=== PATIENT | female | born 1975 | race Caucasian/White ===

== ENCOUNTER → 2017-06-04 | Outpatient (CLI) | payer BC ==
--- NOTE | 2017-06-04 10:52 | XR ---
EXAMINATION TYPE: XR foot complete RT DATE OF EXAM: 06/04/2017 COMPARISON: NONE HISTORY: 42 year-old female right foot pain after kicking injury 2 weeks ago. TECHNIQUE: 3 views FINDINGS: Nondisplaced oblique fracture of the fifth proximal phalangeal shaft. No additional acute fracture or dislocation is seen. Tiny plantar calcaneal spur. IMPRESSION: Nondisplaced oblique fracture of the fifth proximal phalangeal shaft.
== END ==
LOC: RADXRYALE 09:44
PROVIDERS: ATTEND Internal Medicine
DX: S92.514A Nondisplaced fracture of proximal phalanx of right lesser toe(s), initial encounter for closed fracture (principal)

== ENCOUNTER 2022-12-15 19:03 | Emergency (ER) | payer BC ==
[2022-12-15 19:25] VITALS: BP 172/99; PULSE 87; RESP 16; TEMP 98.1
--- NOTE | 2022-12-15 20:08 | US ---
EXAMINATION TYPE: US venous doppler duplex LE RT DATE OF EXAM: 12/15/2022 7:53 PM COMPARISON: NONE CLINICAL HISTORY: Right focal thigh pain. History of superficial thrombosis 2021 in Right GSV mid th igh to calf. SIDE PERFORMED: Right TECHNIQUE: The lower extremity deep venous system is examined utilizing real time linear array sonog coral with graded compression, doppler sonography and color-flow sonography. VESSELS IMAGED: Common Femoral Vein Deep Femoral Vein Greater Saphenous Vein * Femoral Vein Popliteal Vein Small Saphenous Vein * Proximal Calf Veins (* superficial vessels) Right Leg: Negative for DVT. Chronic appearance of superficial thrombosis in the right GSV mid thig h to mid calf. IMPRESSION: No evidence of deep vein thrombosis in the right leg. There is evidence for some thrombus in the long saphenous vein which appears chronic.
--- NOTE | 2022-12-15 21:25 | ED ---
General Adult HPI - General Chief complaint: Recheck/Abnormal Lab/Rx Stated complaint: R/O Blood Clot R Leg Time Seen by Provider: 12/15/22 20:42 Source: patient, RN notes reviewed, old records reviewed Mode of arrival: ambulatory - History of Present Illness Initial comments: Patient is a 47-year-old female with past medical history remarkable for superficial thrombosis of her right lower extremity presents emergency Department complaining of some increased pain in the right thigh as well as right inner foreleg. Concern for reoccurrence of blood clot. He was on blood thinners previously but stopped in September. 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 His no chest pain or shortness of breath. Has no abdominal pain, nausea, vomiting. States the pain is isolated to the medial aspect of the right leg. No sensory deficits. Presents for further evaluation at this time. Is concern for possible blood clot. Workup was started in triage. - Related Data Allergies Allergy/AdvReac Type Severity Reaction Status Date / Time morphine AdvReac Itching Verified 12/15/22 19:25 Review of Systems ROS Statement: Those systems with pertinent positive or pertinent negative responses have been documented in the HPI. Review of Systems: CONST: Denies fever EYES: Denies blurry vision ENT: Denies nasal congestion C/V: Denies Chest pain RESP: Denies shortness of breath GI: Denies abdominal pain : Denies dysuria SKIN: Denies rash. MSK: Endorses right leg pain, medial thigh and foreleg NEURO: Denies headache ROS Other: All systems not noted in ROS Statement are negative. Past Medical History Additional Past Medical History / Comment(s): hx of superfical clot in R leg. Past Surgical History: Section Additional Past Surgical History / Comment(s): fissure sx Past Psychological History: No Psychological Hx Reported Smoking Status: Never smoker Past Alcohol Use History: Occasional Past Drug Use History: None Reported General Exam - General Exam Comments Initial Comments: General: Appears in no acute distress. HEAD: Normal with no signs of head trauma. EYES: PERRLA, EOMI, conjunctiva normal, no discharge. ENT: Hearing grossly intact, normal oropharynx. RESPIRATORY: No respiratory distress. C/V: Regular rate and rhythm, no edema, peripheral pulses 2+ and intact throughout ABD: Abd is soft, nontender, nondistended EXT: Normal range of motion, no obvious deformity SKIN: No rashes or lesions observed on exposed skin. NEURO: Alert and oriented 4. Neurovascular intact throughout. Course Vital Signs 12/15/22 19:17 Temperature 98.1 F Pulse Rate 87 Respiratory 16 Rate Blood Pressure 172/99 O2 Sat by Pulse 100 Oximetry Medical Decision Making - Medical Decision Making Was pt. sent in by a medical professional or institution (, [facility], [employer], urgent care, hospital, or jail...) When possible be specific @ -No Did you speak to anyone other than the patient for history (EMS, parent, family, police, friend...)? What history was obtained from this source @ -No Did you review nursing and triage notes (agree or disagree)? Why? @ -I reviewed and agree with nursing and triage notes Were old charts reviewed (outside hosp., previous admission, EMS record, old EKG, old radiological studies, urgent care reports/EKG's, jail records)? Report findings @ -No old charts were reviewed Differential Diagnosis (chest pain, altered mental status, abdominal pain women, abdominal pain men, vaginal bleeding, weakness, fever, dyspnea, syncope, headache, dizziness, GI bleed, back pain, seizure, CVA, palpatations, mental health, musculoskeletal)? @ -Muscle strain DVT, superficial thrombophlebitis, superficial thrombus. This list is not all-inclusive. EKG interpreted by me (3pts min.). @ -None known X-rays interpreted by me (1pt min.). @ -None done CT interpreted by me (1pt min.). @ -None done U/S interpreted by me (1pt. min.). @ -Radiology interpreted and revealed no obvious DVT the patient does have a chronic superficial thrombosis in the superficial system which appears chronic. What testing was considered but not performed or refused? (CT, X-rays, U/S, labs)? Why? @ -None What meds were considered but not given or refused? Why? @ -None Did you discuss the management of the patient with other professionals (professionals i.e. [facility] He, [employer], lab, RT, psych nurse, social work case manager, vest backer, teacher, mortgage loan officer, case supervisor)? Give summary @ -No Was smoking cessation discussed for >3mins.? @ -No Was critical care preformed (if so, how long)? @ -No Were there social determinants of health that impacted care today? How? (Homelessness, low income, unemployed, alcoholism, drug addiction, transportatio n, low edu. Level, literacy, decrease access to med. care, group home, rehab)? @ -No Was there de-escalation of care discussed even if they declined (Discuss DNR or withdrawal of care, Hospice)? DNR status @ -No What co-morbidities impacted this encounter? (DM, HTN, Smoking, COPD, CAD, Cancer, CVA, ARF, Chemo, Hep., AIDS, mental health diagnosis, sleep apnea, morbid obesity)? @ -None Was patient admitted / discharged? Hospital course, mention meds given and route, prescriptions, significant lab abnormalities, going to OR and other pertinent info. @ -Based on the patient's presentation and physical exam, I did discuss the results of her ultrasound as it returned after patient was placed in fast track. She expressed understanding. Patient is a superficial thrombus, but does not appear closed the deep system and therefore I will not start her on blood thinners which she was in agreement with. There is no indication to start the patient on anticoagulation. 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 Strict return precautions were discussed. No concern for PE at this time. She expressed understanding was in agreement this plan. I instructed the patient to follow up with their PCP in the next 1-3 days. I explained that the patient should return to the emergency department if they experience any worsening symptoms. Strict return precautions were discussed with the patient. The patient expressed understanding of these instructions. I answered all questions that the patient had. The patient was discharged home in good condition with their prescriptions and follow up information. Undiagnosed new problem with uncertain prognosis? @ -No Drug Therapy requiring intensive monitoring for toxicity (Heparin, Nitro, Insulin, Cardizem)? @ -No Were any procedures done? @ -No Diagnosis/symptom? @ -Superficial thrombus of the right long saphenous vein, chronic Acute, or Chronic, or Acute on Chronic? @ -Chronic Uncomplicated (without systemic symptoms) or Complicated (systemic symptoms)? @ -Uncomplicated Side effects of treatment? @ -No Exacerbation, Progression, or Severe Exacerbation? @ -No Poses a threat to life or bodily function? How? (Chest pain, [place], MD, pneumonia, PE, COPD, DKA, ARF, appy, cholecystitis, CVA, Diverticulitis, Homicidal, Suicidal, threat to staff... and all critical care pts) @ -No Disposition Clinical Impression: Chronic superficial venous thrombosis of right lower extremity Disposition: HOME SELF-CARE Condition: Good Is patient prescribed a controlled substance at d/c from ED?: No Referrals: Stephen Mi MD [Primary Care Provider] - 1-2 days Time of Disposition: 21:15
== END 2022-12-15 21:44 | disposition home or self-care (01) ==
LOC: EC 19:03
DX: I82.811 Embolism and thrombosis of superficial veins of right lower extremity (principal); Z88.5 Allergy status to narcotic agent
CPT/HCPCS: 99283

== ENCOUNTER → 2024-08-22 | Outpatient (CLI) | payer BC ==
[2024-08-22 18:39] LABS: BUN/Creat Ratio 17.12 Ratio (12.00-20.00); Blood Urea Nitrogen 13.7 mg/dL (9.0-27.0); Calcium 9.1 mg/dL (8.7-10.3); Carbon Dioxide 25.1 mmol/L (21.6-31.8); Chloride 102 mmol/L (96-109); Glucose 95 mg/dL (70-110); Potassium 4.1 mmol/L (3.5-5.5); Sodium 139 mmol/L (135-145)
[2024-08-22 19:14] LABS: INR 2.52 sec (0.93-1.11); Prothrombin Time 26.8 sec (9.9-11.9)
[2024-08-22 22:03] LABS: Basophils # (A) 0.05 X 10*3/uL (0.00-0.10); Basophils % (A) 0.6 %; Eosinophils # (A) 0.09 X 10*3/uL (0.04-0.35); Eosinophils % (A) 1.1 %; HCT 40.9 % (37.2-46.3); HGB 13.1 g/dL (12.0-15.0); Lymphocytes # (A) 2.18 X 10*3/uL (0.90-5.00); Lymphocytes % (A) 26.7 %; MCH 26.8 pg (27.0-32.0); MCV 83.8 FL (80.0-97.0); Mean Platelet Volume 13.8 FL (9.5-12.2); Monocytes # (A) 0.54 X 10*3/uL (0.20-1.00); Monocytes % (A) 6.6 %; NRBC Per 100 WBC 0 X 10*3/uL (0.00-0.01); Neutrophils # (A) 5.27 X 10*3/uL (1.80-7.70); Neutrophils % (A) 64.8 %; Platelet Count 88 X 10*3/uL (140-440); RBC 4.88 X 10*6/uL (4.10-5.20); RDW 13.7 % (11.5-14.5); WBC 8.15 X 10*3/uL (4.50-10.00)
[2024-08-22 22:04] LABS: RBC Morphology Normal (Normal)
== END | disposition home or self-care (01) ==
LOC: LABWHC1 11:51
PROVIDERS: ATTEND Nurse Practitioner Family
DX: I10 Essential (primary) hypertension (principal); D68.61 Antiphospholipid syndrome; R42 Dizziness and giddiness
CPT/HCPCS: 36415; 80048; 85025; 85610

== ENCOUNTER → 2024-09-04 | Outpatient (CLI) | payer BC ==
[2024-09-04 18:53] LABS: INR 2.4 sec (0.93-1.11); Prothrombin Time 25.2 sec (9.9-11.9)
== END | disposition home or self-care (01) ==
LOC: LABWHC1 12:57
PROVIDERS: ATTEND Student in an Organized Health Care Education/Training Program
DX: I26.99 Other pulmonary embolism without acute cor pulmonale (principal); D68.61 Antiphospholipid syndrome
CPT/HCPCS: 36415; 85610